=== PATIENT | male | born 1960 | race Caucasian/White ===

== ENCOUNTER → 2016-06-14 | Outpatient (CLI) | payer OTHER ==
[2016-06-14 16:09] LABS: Appearance,Urine Clear (Clear); Bilirubin,Urine Negative (Negative); Glucose,Urine (UA) Negative (Negative); Ketones,Urine 2+ (Negative); Leukocyte Esterase,Urine Negative (Negative); Nitrite,Urine Negative (Negative); PH, Urine 5.5 (5.0-8.0); Protein,Urine Trace (Negative); UA Billing (MACRO vs. MICRO) CHEM; Urobilinogen,Urine <2.0 mg/dL (<2.0)
--- NOTE | 2016-06-14 16:30 | XR ---
EXAMINATION TYPE: XR chest 2V DATE OF EXAM: 06/14/2016 4:03 PM COMPARISON: 04/08/2015 HISTORY: 56-year-old male hypertensive heart disease without heart failure TECHNIQUE: Frontal and lateral views FINDINGS: The cardiomediastinal silhouette, aorta, and pulmonary vasculature are within normal limits. Lungs an d pleural spaces are clear. Bridging anterior endplate spondylosis. IMPRESSION: 1. No acute cardiopulmonary process. 2. DISH.
[2016-06-14 16:43] LABS: CH 33.8; CHCM 34.9; HCT 43.1 % (39.0-53.0); HDW 2.34; MCH 33.9 pg (25.0-35.0); MCHC 34.9 g/dL (31.0-37.0); MCV 97.3 fL (80.0-100.0); Mean Platelet Volume 6.5; RBC 4.43 m/uL (4.30-5.90); RDW 12.7 % (11.5-15.5); WBC 7.2 k/uL (3.8-10.6)
[2016-06-14 16:51] LABS: ALT 35 U/L (21-72); AST 47 U/L (17-59); Alkaline Phosphatase 70 U/L (38-126); Anion Gap 11 mmol/L; Blood Urea Nitrogen 14 mg/dL (9-20); Calcium 10.1 mg/dL (8.4-10.2); Carbon Dioxide 28 mmol/L (22-30); Chloride 101 mmol/L (98-107); Cholesterol 234 mg/dL (<200); Glucose 86 mg/dL (74-99); Non-African American GFR(MDRD) >60 (>60 ml/min/1.73 sqM); Potassium 4.9 mmol/L (3.5-5.1); Sodium 140 mmol/L (137-145); Total Bilirubin 1.2 mg/dL (0.2-1.3); Total Protein 7.6 g/dL (6.3-8.2); Triglycerides 76 mg/dL (<150)
[2016-06-14 16:58] LABS: HDL Cholesterol 130 mg/dL (40-60)
[2016-06-14 17:21] LABS: Prostate Specific Antigen 0.55 ng/mL (0.00-4.00)
== END | disposition home or self-care (01) ==
LOC: LABWHC1 15:44
PROVIDERS: ATTEND Internal Medicine
DX: R05 Cough (principal); E78.2 Mixed hyperlipidemia; I11.9 Hypertensive heart disease without heart failure; N40.0 Benign prostatic hyperplasia without lower urinary tract symptoms; R35.0 Frequency of micturition; Z00.00 Encounter for general adult medical examination without abnormal findings
CPT/HCPCS: 36415; 71020; 80053; 80061; 81003; 84153; 84439; 84443; 85027

== ENCOUNTER 2016-09-29 20:26 | Emergency (ER) | payer OTHER ==
[2016-09-29 20:35] VITALS: RESP 18
[2016-09-29] MEDS ORDERED: ONDANSETRON 4 MG/2 ML VIAL IVP STA (22:44)
[2016-09-29] MEDS ORDERED: SODIUM CHLORIDE 0.9% 1,000 ML IV STA (22:44)
[2016-09-29] MEDS ORDERED: MORPHINE SULFATE 4 MG/ML SYRINGE IV STA (22:44)
[2016-09-29 23:27] LABS: Appearance,Urine Clear (Clear); Basophils # (A) 0.1 k/uL (0-0.2); Basophils % (A) 1 %; Bilirubin,Urine Negative (Negative); CH 34.8; CHCM 34.6; Eosinophils # (A) 0.2 k/uL (0-0.7); Eosinophils % (A) 2 %; Glucose,Urine (UA) Negative (Negative); HCT 38.3 % (39.0-53.0); HDW 2.21; HGB 12.8 gm/dL (13.0-17.5); Ketones,Urine Negative (Negative); Leukocyte Esterase,Urine Negative (Negative); Luc # (Auto) 0.21; Luc % (Auto) 2; Lymphocytes # (A) 2.3 k/uL (1.0-4.8); Lymphocytes % (A) 23 %; MCH 33.7 pg (25.0-35.0); MCHC 33.4 g/dL (31.0-37.0); MCV 101.1 fL (80.0-100.0); Mean Platelet Volume 7.2; Monocytes # (A) 0.6 k/uL (0-1.0); Monocytes % (A) 6 %; Neutrophils # (A) 6.8 k/uL (1.3-7.7); Neutrophils % (A) 67 %; Nitrite,Urine Negative (Negative); PH, Urine 5.5 (5.0-8.0); Protein,Urine Negative (Negative); RBC 3.79 m/uL (4.30-5.90); Specific Gravity,Urine 1.002 (1.001-1.035); UA Billing (MACRO vs. MICRO) CHEM; Urobilinogen,Urine <2.0 mg/dL (<2.0); WBC 10.3 k/uL (3.8-10.6)
--- NOTE | 2016-09-29 23:30 | ED ---
Abdominal Pain HPI - General Chief Complaint: Abdominal Pain Stated Complaint: Abd Pain Time Seen by Provider: 09/29/16 22:33 Source: patient, RN notes reviewed, old records reviewed Mode of arrival: ambulatory Limitations: no limitations - History of Present Illness Initial Comments: Patient is a 56-year-old male presents the chief complaint of lower abdominal pain for the past few hours. She reports it's below his belt line. He denies any hematuria or urinary symptoms. He reports he's had no fever or chills. Normal bowel movements no vomiting. He states that he's had colonoscopies in the past about the benign besides a few polyps. He states that he has felt this onset of pain while he was at work today.Patient denies any recent fever, chills, shortness of breath, chest pain, back pain, nausea vomiting, numbness or tingling, dysuria or hematuria, constipation or diarrhea, headaches or visual changes, or any other current symptoms - Related Data Home Medications Medication Instructions Recorded Confirmed Losartan/Hydrochlorothiazide 1 tab PO DAILY 05/09/14 09/29/16 [Losartan-Hctz 100-12.5 mg Tab] Cholecalciferol [Vitamin D3] 1,000 unit PO DAILY 12/21/14 09/29/16 Aspirin EC [Ecotrin Low Dose] 81 mg PO DAILY 09/29/16 09/29/16 Previous Rx's Medication Instructions Recorded Acetaminophen-Codeine 300-30mg 1 tab PO Q4H PRN #15 tablet 09/30/16 [Tylenol #3] Ciprofloxacin HCl [Cipro] 500 mg PO Q12HR 10 Days 09/30/16 metroNIDAZOLE [Flagyl] 500 mg PO TID 10 Days 09/30/16 Allergies Allergy/AdvReac Type Severity Reaction Status Date / Time No Known Allergies Allergy Verified 09/29/16 22:19 Review of Systems ROS Statement: Those systems with pertinent positive or pertinent negative responses have been documented in the HPI. ROS Other: All systems not noted in ROS Statement are negative. Past Medical History Past Medical History: Hypertension History of Any Multi-Drug Resistant Organisms: None Reported Additional Past Surgical History / Comment(s): COLONOSCOPY Past Anesthesia/Blood Transfusion Reactions: No Reported Reaction Past Psychological History: No Psychological Hx Reported Smoking Status: Current every day smoker Past Alcohol Use History: Daily, Heavy Past Drug Use History: None Reported General Exam - General Exam Comments Initial Comments: Well appearing 56 year old male, no distress. Limitations: no limitations General appearance: alert, in no apparent distress Head exam: Present: atraumatic, normocephalic, normal inspection Eye exam: Present: normal appearance, PERRL, EOMI. Absent: scleral icterus, conjunctival injection, periorbital swelling ENT exam: Present: normal exam, mucous membranes moist Neck exam: Present: normal inspection. Absent: tenderness, meningismus, lymphadenopathy Respiratory exam: Present: normal lung sounds bilaterally. Absent: respiratory distress, wheezes, rales, rhonchi, stridor Cardiovascular Exam: Present: regular rate, normal rhythm, normal heart sounds. Absent: systolic murmur, diastolic murmur, rubs, gallop, clicks GI/Abdominal exam: Present: soft, tenderness (LLQ tenderness. ), normal bowel sounds. Absent: distended, guarding, rebound, rigid Extremities exam: Present: normal inspection, full ROM, normal capillary refill. Absent: tenderness, pedal edema, joint swelling, calf tenderness Back exam: Present: normal inspection Neurological exam: Present: alert, oriented X3, CN II-XII intact Psychiatric exam: Present: normal affect, normal mood Skin exam: Present: warm, dry, intact, normal color. Absent: rash Course Vital Signs 09/29/16 09/30/16 09/30/16 20:33 00:45 02:42 Temperature 98.4 F 97.9 F Pulse Rate 98 79 85 Respiratory 18 18 18 Rate Blood Pressure 148/80 131/78 125/79 O2 Sat by Pulse 98 99 98 Oximetry Medical Decision Making - Medical Decision Making Patient is a 56-year-old male presents the chief complaint of lower abdominal pain for the past few hours. She reports it's below his belt line. He denies any hematuria or urinary symptoms. He reports he's had no fever or chills. Normal bowel movements no vomiting. He states that he's had colonoscopies in the past about the benign besides a few polyps. He states that he has felt this onset of pain while he was at work today. Patient given iv morphine and fluids. Labs show normal range WBC, evidence of macrocytosis related to patient alcohol use. Patient continues to be tender in LLQ, CT abdomen and pelvis preformed with contrast. CT shows inflammation and thickening of distal descending proximal sigmoid colon. Likely related to diverticulitis, differential includes colitis. Underlying lesion difficult to exclude, Sigmoid diverticulosis, Atheroslcerosis of abdominal aorta, and Osseous mineralization appear decreased, low attenuationin t12 vertebral body. Nonspecific. Patient informed of results. Patient will be started on ciprofloxacin and flagyl. Discussed importance remaining ETOH free while on antibioitcs and for his health. Patient advised follow up with PCP in 2-3 days. REturn parameters discussed. - Lab Data Result diagrams: 09/29/16 23:20 09/29/16 23:20 Lab Results 09/29/16 09/29/16 09/29/16 Range/Units 23:20 23:20 23:20 WBC 10.3 (3.8-10.6) k/uL RBC 3.79 L (4.30-5.90) m/uL Hgb 12.8 L (13.0-17.5) gm/dL Hct 38.3 L (39.0-53.0) % MCV 101.1 H (80.0-100.0) fL MCH 33.7 (25.0-35.0) pg MCHC 33.4 (31.0-37.0) g/dL RDW 13.0 (11.5-15.5) % Plt Count 290 (150-450) k/uL Neutrophils % 67 % Lymphocytes % 23 % Monocytes % 6 % Eosinophils % 2 % Basophils % 1 % Neutrophils # 6.8 (1.3-7.7) k/uL Lymphocytes # 2.3 (1.0-4.8) k/uL Monocytes # 0.6 (0-1.0) k/uL Eosinophils # 0.2 (0-0.7) k/uL Basophils # 0.1 (0-0.2) k/uL Sodium 140 (137-145) mmol/L Potassium 3.8 (3.5-5.1) mmol/L Chloride 107 (98-107) mmol/L Carbon Dioxide 24 (22-30) mmol/L Anion Gap 9 mmol/L BUN 14 (9-20) mg/dL Creatinine 0.63 L (0.66-1.25) mg/dL Est GFR (MDRD) Af Amer >60 (>60 ml/min/1.73 sqM) Est GFR (MDRD) Non-Af >60 (>60 ml/min/1.73 sqM) Glucose 82 (74-99) mg/dL Calcium 8.9 (8.4-10.2) mg/dL Total Bilirubin 0.3 (0.2-1.3) mg/dL AST 19 (17-59) U/L ALT 26 (21-72) U/L Alkaline Phosphatase 53 (38-126) U/L Total Protein 6.3 (6.3-8.2) g/dL Albumin 3.8 (3.5-5.0) g/dL Amylase 91 (30-110) U/L Lipase 283 (23-300) U/L Urine Color Colorless Urine Appearance Clear (Clear) Urine pH 5.5 (5.0-8.0) Ur Specific [place] 1.002 (1.001-1.035) Urine Protein Negative (Negative) Urine Glucose (UA) Negative (Negative) Urine Ketones Negative (Negative) Urine Blood Negative (Negative) Urine Nitrite Negative (Negative) Urine Bilirubin Negative (Negative) Urine Urobilinogen <2.0 (<2.0) mg/dL Ur Leukocyte Esterase Negative (Negative) - Radiology Data Radiology results: report reviewed inflammation and thickening of distal descending proximal sigmoid colon. Likely related to diverticulitis, differential includes colitis. Underlying lesion difficult to exclude. Sigmoid diverticulosis. Atheroslcerosis of abdominal aorta. Osseous mineralization appear decreased, low attenuationin t12 vertebral body. Nonspecific. Disposition Clinical Impression: Diverticulitis Disposition: HOME SELF-CARE Condition: Good Instructions: Diverticulitis (ED), Diverticulitis Diet (ED) Additional Instructions: Patient advised to follow-up with primary care physician. Take antibiotics as prescribed. He cannot drink alcohol while taking these antibiotics. Return to the emergency department if any alarming signs or symptoms occur. Prescriptions: Acetaminophen-Codeine 300-30mg [Tylenol #3] 1 tab PO Q4H PRN #15 tablet PRN Reason: Pain Ciprofloxacin HCl [Cipro] 500 mg PO Q12HR 10 Days metroNIDAZOLE [Flagyl] 500 mg PO TID 10 Days Referrals: Rogelio Fox MD [Primary Care Provider] - 1-2 days Time of Disposition: 02:14
[2016-09-29 23:37] LABS: ALT 26 U/L (21-72); AST 19 U/L (17-59); Alkaline Phosphatase 53 U/L (38-126); Amylase 91 U/L (30-110); Anion Gap 9 mmol/L; Blood Urea Nitrogen 14 mg/dL (9-20); Calcium 8.9 mg/dL (8.4-10.2); Carbon Dioxide 24 mmol/L (22-30); Chloride 107 mmol/L (98-107); Glucose 82 mg/dL (74-99); Non-African American GFR(MDRD) >60 (>60 ml/min/1.73 sqM); Potassium 3.8 mmol/L (3.5-5.1); Sodium 140 mmol/L (137-145); Total Bilirubin 0.3 mg/dL (0.2-1.3); Total Protein 6.3 g/dL (6.3-8.2)
[2016-09-30] MEDS ORDERED: RX INFO: IV CONTRAST WAS GIVEN 1 EACH MISC MISCELLANE PRN (00:12)
--- NOTE | 2016-09-30 00:43 | XR ---
XR KUB INDICATION: abdominal pain COMPARISON: None FINDINGS: Two upright frontal views of the abdomen are obtained. Nonobstructive bowel gas pattern. Linear density in the left pelvis. Overlying soft tissue structures obscure osseous findings. No definite acute osseous findings are identified. 7 mm nodularity in the left lower lung field. IMPRESSION: 1. Nonobstructive bowel gas pattern. 2. Linear density in the left pelvis may represent a nonspecific calcification. CT of the abdomen/pelvis may be considered if further evaluation is clinically warranted. 3. 7 mm nodularity in the left lower lung field. A dedicated chest radiograph may be helpful for further evaluation.
--- NOTE | 2016-09-30 02:09 | CT ---
CT abdomen and pelvis with contrast INDICATION: LLQ pain TECHNIQUE: Multiple, contiguous axial cuts of the abdomen and pelvis are obtained from the lung bases to the ischial tuberosities following the administration of IV contrast. Radiation Dose: CTDIvol: 8.1 mGy DLP: 386.2 mGy-cm CTDIvol: 9.5 mGy DLP: 239.1 mGy-cm This CT exam was performed using one or more of the following dose reduction techniques: automated exposure control, adjustment of the mA and/or kV according to patient size, and/or use of iterative reconstruction technique. COMPARISON: none FINDINGS: Atelectasis at the lung bases. Motion at lung bases limits evaluation. The liver appears prominent. The spleen is normal in size. The gallbladder, bile ducts and pancreas are grossly unremarkable. The adrenal gland are unremarkable. No evidence for hydronephrosis bilaterally. The bladder is unremarkable for the degree of distension. The appendix appears unremarkable. There is thickening of the distal descending/proximal sigmoid colon with surrounding inflammatory changes. There are scattered sigmoid diverticulosis. Fat containing bilateral inguinal hernias. There is a possible retroaortic left renal vein. Additional left renal vein drains into the left iliac vein. Atherosclerotic calcifications of the abdominal aorta. There is prominent mural plaque at the distal abdominal aorta with mild narrowing of the lumen. Osseous mineralization appears decreased. Bilateral L5 pars defects. Grade 1 anterolisthesis of L5/S1. Degenerative changes of the lower thoracic and lumbar spine. There is a low attenuation focus in the T12 vertebral body, nonspecific. Bridging osteophytes along the right aspect of the lower thoracic spine which may be related to diffuse idiopathic skeletal hyperostosis. IMPRESSION: 1. Inflammation and thickening of the distal descending/proximal sigmoid colon is likely related to diverticulitis with other differential considerations including a colitis. Underlying lesion is difficult to exclude. 2. Sigmoid diverticulosis. 3. The liver appears prominent. 4. Atherosclerosis of the abdominal aorta. 5. Osseous mineralization appears decreased. There is a low attenuation focus in the T12 vertebral body, nonspecific.
[2016-09-30] MEDS ORDERED: LEVOFLOXACIN 500 MG TAB PO STA (02:24)
[2016-09-30] MEDS ORDERED: metroNIDAZOLE 500 MG TAB PO ONE (02:24)
[2016-09-30 02:44] VITALS: BP 125/79; PULSE 85; TEMP 97.9
== END 2016-09-30 02:44 | disposition home or self-care (01) ==
LOC: EC 20:26
DX: K57.30 Diverticulosis of large intestine without perforation or abscess without bleeding (principal); D75.89 Other specified diseases of blood and blood-forming organs; I70.0 Atherosclerosis of aorta; R93.7 Abnormal findings on diagnostic imaging of other parts of musculoskeletal system; I10 Essential (primary) hypertension; F17.200 Nicotine dependence, unspecified, uncomplicated; Z79.82 Long term (current) use of aspirin; Z79.899 Other long term (current) drug therapy
CPT/HCPCS: 99285; 96374; 96375; 96361 ×3; 36415; 80053; 82150; 83690; 85025; 81003; 74000; 74177; J2270; J2405; Q9967

== ENCOUNTER → 2016-10-13 | Outpatient (CLI) | payer OTHER ==
--- NOTE | 2016-10-14 07:55 | CT ---
EXAMINATION TYPE: CT chest w con DATE OF EXAM: 10/13/2016 COMPARISON: Abdomen 09/29/2016 HISTORY: Patient has no complaints at time of study. Follow up study for new found lung nodule on re cent KUB CT DLP: 287.5 mGycm, Automated exposure control for dose reduction was used. CONTRAST: Performed injected with 100 mL of Omnipaque 300. TECHNIQUE: Axial images were obtained at 5 mm thick sections. Reconstructed images are reviewed on Pongr computer in the coronal plane. FINDINGS: Portion of the thyroid visualized is normal. No suspicious lung nodules or focal infiltrates are present. No enlarged mediastinal or hilar adenopathy is evident. The ascending aorta diameter at the level o f the main pulmonary artery is 3.6 cm. The main pulmonary artery diameter at the bifurcation is 2.[address] sections are obtained through the upper abdomen. Abdomen is essentially unremarkable. This exam is compared with the x-ray of 09/29/2016. The 7 mm density overlying the left heart on these images is not identified on the CT chest images. IMPRESSIONS: 1. Normal Chest CT.
== END ==
LOC: RADCTMAIN 17:20
PROVIDERS: ATTEND Internal Medicine
DX: R22.2 Localized swelling, mass and lump, trunk (principal)
CPT/HCPCS: 71260; Q9967

== ENCOUNTER → 2017-08-02 | Outpatient (CLI) | payer OTHER ==
[2017-08-02 13:33] LABS: HCT 42.9 % (39.0-53.0); HGB 14.5 gm/dL (13.0-17.5); MCH 33.6 pg (25.0-35.0); MCHC 33.8 g/dL (31.0-37.0); MCV 99.7 fL (80.0-100.0); Mean Platelet Volume 5.9; Platelet Count 358 k/uL (150-450); RBC 4.31 m/uL (4.30-5.90); RDW 13.4 % (11.5-15.5); WBC 6.1 k/uL (3.8-10.6)
[2017-08-02 14:04] LABS: ALT 42 U/L (21-72); AST 45 U/L (17-59); Albumin 4.4 g/dL (3.5-5.0); Alkaline Phosphatase 71 U/L (38-126); Anion Gap 14 mmol/L; Blood Urea Nitrogen 9 mg/dL (9-20); Calcium 9.4 mg/dL (8.4-10.2); Carbon Dioxide 26 mmol/L (22-30); Chloride 105 mmol/L (98-107); Cholesterol 215 mg/dL (<200); Glucose 84 mg/dL (74-99); HDL Cholesterol 97 mg/dL (40-60); LDL Cholesterol,Calculated 93 mg/dL (0-99); Potassium 5.5 mmol/L (3.5-5.1); Sodium 145 mmol/L (137-145); Total Bilirubin 0.6 mg/dL (0.2-1.3); Total Protein 6.9 g/dL (6.3-8.2); Triglycerides 127 mg/dL (<150)
[2017-08-02 14:18] LABS: T4, Free (Free Thyroxine) 0.91 ng/dL (0.78-2.19)
[2017-08-02 14:32] LABS: Prostate Specific Antigen 0.98 ng/mL (0.00-4.00)
--- NOTE | 2017-08-02 16:17 | XR ---
EXAMINATION TYPE: XR chest 2V DATE OF EXAM: 08/02/2017 COMPARISON: Prior chest x-ray 06/14/2016 HISTORY: Physical exam TECHNIQUE: Frontal and lateral views of the chest are obtained. FINDINGS: There is no focal air space opacity, pleural effusion, or pneumothorax seen. The cardiac silhouette size is stable. The osseous structures are intact. Prominent lung volume may be indicati ve of underlying COPD. Flowing anterior osteophytes along the thoracic spine suggest diffuse idiopath ic skeletal hyperostosis. IMPRESSION: No acute cardiopulmonary process.
== END | disposition home or self-care (01) ==
LOC: LABT 12:22
PROVIDERS: ATTEND Internal Medicine
DX: Z00.00 Encounter for general adult medical examination without abnormal findings (principal); I11.9 Hypertensive heart disease without heart failure; E78.2 Mixed hyperlipidemia; K21.0 Gastro-esophageal reflux disease with esophagitis; R05 Cough; N40.0 Benign prostatic hyperplasia without lower urinary tract symptoms
CPT/HCPCS: 36415; 71046; 80053; 80061; 84153; 84439; 84443; 85027

== ENCOUNTER → 2017-11-15 | Outpatient (CLI) | payer OTHER ==
[2017-11-15 14:34] LABS: Anion Gap 11 mmol/L; Blood Urea Nitrogen 14 mg/dL (9-20); Carbon Dioxide 27 mmol/L (22-30); Chloride 103 mmol/L (98-107); Sodium 141 mmol/L (137-145)
== END | disposition home or self-care (01) ==
LOC: LABWHC1 13:49
PROVIDERS: ATTEND Internal Medicine
DX: E87.5 Hyperkalemia (principal); I11.9 Hypertensive heart disease without heart failure
CPT/HCPCS: 36415; 80051; 82565; 84520

== ENCOUNTER → 2017-12-24 | Outpatient (CLI) | payer OTHER ==
[2017-12-24 22:48] LABS: ALT 32 U/L (10-49); AST 38 U/L (14-35); Cholesterol 166 mg/dL (0-200); Creatine Kinase 80 U/L (35-257); Triglycerides <50.0 mg/dL (0.0-149.0); VLDL Calculation 9.98 mg/dL (5.00-40.00)
== END | disposition home or self-care (01) ==
LOC: LABWHC1 11:51
PROVIDERS: ATTEND Internal Medicine
DX: E78.2 Mixed hyperlipidemia (principal)
CPT/HCPCS: 36415; 80061; 82550; 84450; 84460

== ENCOUNTER 2018-03-22 04:29 | Emergency (ER) | payer OTHER ==
[2018-03-22 04:35] VITALS: TEMP 97.6
[2018-03-22 05:26] LABS: Basophils % (A) 1 %; Eosinophils # (A) 0.1 k/uL (0-0.7); Eosinophils % (A) 2 %; HCT 42.5 % (39.0-53.0); HGB 14.4 gm/dL (13.0-17.5); Lymphocytes # (A) 2.4 k/uL (1.0-4.8); Lymphocytes % (A) 35 %; MCH 33.4 pg (25.0-35.0); MCHC 33.8 g/dL (31.0-37.0); MCV 98.8 fL (80.0-100.0); Mean Platelet Volume 6.4; Monocytes # (A) 0.6 k/uL (0-1.0); Monocytes % (A) 8 %; Neutrophils # (A) 3.5 k/uL (1.3-7.7); Neutrophils % (A) 51 %; Platelet Count 309 k/uL (150-450); RBC 4.31 m/uL (4.30-5.90); RDW 12.5 % (11.5-15.5); WBC 6.8 k/uL (3.8-10.6)
[2018-03-22 05:33] LABS: INR 0.9 (<1.2); Prothrombin Time 9.6 sec (9.0-12.0)
[2018-03-22 05:40] LABS: ALT 34 U/L (21-72); AST 37 U/L (17-59); Albumin 4.2 g/dL (3.5-5.0); Alkaline Phosphatase 57 U/L (38-126); Anion Gap 8 mmol/L; Blood Urea Nitrogen 18 mg/dL (9-20); Calcium 9.4 mg/dL (8.4-10.2); Carbon Dioxide 23 mmol/L (22-30); Chloride 106 mmol/L (98-107); Glucose 95 mg/dL (74-99); Potassium 3.7 mmol/L (3.5-5.1); Sodium 137 mmol/L (137-145); Total Bilirubin 0.4 mg/dL (0.2-1.3); Total Protein 6.8 g/dL (6.3-8.2)
--- NOTE | 2018-03-22 05:49 | XR ---
EXAM: XR Chest, 2 Views CLINICAL HISTORY: Reason: dizziness TECHNIQUE: Frontal and lateral views of the chest. COMPARISON: Chest x-ray 08/02/2017 FINDINGS: Lungs: Lungs are clear of focal infiltrates or consolidations. Pleural space: No evidence of pleural effusion or pneumothorax. Heart: Heart size is within normal limits. Mediastinum: Mediastinal structures are unremarkable. Bones/joints: Thoracic spine hypertrophic changes suggesting diffuse idiopathic skeletal hyperostosis IMPRESSION: No evidence of acute cardiopulmonary disease.
[2018-03-22] MEDS: SODIUM CHLORIDE 0.9% 1,000 ML IV ONE (07:00)
--- NOTE | 2018-03-22 07:56 | ED ---
Dizziness HPI - General Chief Complaint: Dizziness Stated Complaint: Light-headed Time Seen by Provider: 03/22/18 05:07 Source: patient Mode of arrival: wheelchair Limitations: no limitations - History of Present Illness Initial Comments: Patient's 58-year-old man who presents to be evaluated for what he is terming as episodes where his head does not feel right. He at one point described it as dizziness, at one point described as a spasm. He states that it is not pain. Seems to be brought on by turning or moving. This better if he remains still or closes his eyes. Patient denies any head injury. He is denying neurologic symptoms. MD Complaint: dizziness - Related Data Home Medications Medication Instructions Recorded Confirmed Losartan/Hydrochlorothiazide 1 tab PO DAILY 05/09/14 09/29/16 [Losartan-Hctz 100-12.5 mg Tab] Cholecalciferol [Vitamin D3] 1,000 unit PO DAILY 12/21/14 09/29/16 Aspirin EC [Ecotrin Low Dose] 81 mg PO DAILY 09/29/16 09/29/16 Previous Rx's Medication Instructions Recorded Acetaminophen-Codeine 300-30mg 1 tab PO Q4H PRN #15 tablet 09/30/16 [Tylenol #3] Ciprofloxacin HCl [Cipro] 500 mg PO Q12HR 10 Days 09/30/16 metroNIDAZOLE [Flagyl] 500 mg PO TID 10 Days 09/30/16 Meclizine [Antivert] 25 mg PO TID PRN #15 tab 03/22/18 Allergies Allergy/AdvReac Type Severity Reaction Status Date / Time No Known Allergies Allergy Verified 03/22/18 04:35 Review of Systems ROS Statement: Those systems with pertinent positive or pertinent negative responses have been documented in the HPI. ROS Other: All systems not noted in ROS Statement are negative. Constitutional: Denies: fever, chills, weakness Eyes: Denies: eye pain, vision change ENT: Denies: ear pain, hearing loss Respiratory: Denies: cough, dyspnea Cardiovascular: Denies: chest pain, palpitations, syncope Gastrointestinal: Reports: nausea. Denies: abdominal pain, vomiting, diarrhea Genitourinary: Denies: dysuria, hematuria Musculoskeletal: Denies: back pain Skin: Denies: rash Neurological: Reports: as per HPI, vertigo. Denies: headache, weakness, numbness, paresthesias Past Medical History Past Medical History: Hypertension History of Any Multi-Drug Resistant Organisms: None Reported Additional Past Surgical History / Comment(s): COLONOSCOPY Past Anesthesia/Blood Transfusion Reactions: No Reported Reaction Past Psychological History: No Psychological Hx Reported Smoking Status: Current every day smoker Past Alcohol Use History: Daily, Heavy Past Drug Use History: None Reported General Exam Limitations: no limitations General appearance: alert, in no apparent distress Head exam: Present: atraumatic, normocephalic, normal inspection Eye exam: Present: normal appearance, PERRL, EOMI, nystagmus. Absent: scleral icterus, conjunctival injection ENT exam: Present: normal oropharynx Neck exam: Present: normal inspection, full ROM. Absent: tenderness, meningismus Respiratory exam: Present: normal lung sounds bilaterally. Absent: respiratory distress, wheezes, rales, rhonchi, stridor Cardiovascular Exam: Present: regular rate, normal rhythm, normal heart sounds. Absent: systolic murmur, diastolic murmur, rubs, gallop GI/Abdominal exam: Present: soft. Absent: tenderness, guarding, rebound Extremities exam: Present: normal inspection, normal capillary refill. Absent: pedal edema, calf tenderness Back exam: Present: normal inspection Neurological exam: Present: alert, oriented X3, CN II-XII intact. Absent: motor sensory deficit Skin exam: Present: warm, dry, intact, normal color. Absent: rash Course Vital Signs 03/22/18 03/22/18 03/22/18 04:31 06:11 06:14 Temperature 97.6 F Pulse Rate 81 Pulse Rate [ 65 76 Pulse Oximetery ] Respiratory 19 20 20 Rate Blood Pressure 164/103 Blood Pressure 124/85 131/91 [Left Arm] O2 Sat by Pulse 99 Oximetry 03/22/18 03/22/18 06:15 08:14 Temperature Pulse Rate 88 Pulse Rate [ 82 Pulse Oximetery ] Respiratory 20 18 Rate Blood Pressure 153/90 Blood Pressure 131/91 [Left Arm] O2 Sat by Pulse 99 Oximetry Medical Decision Making - Lab Data Result diagrams: 03/22/18 04:51 03/22/18 04:51 Lab Results 03/22/18 03/22/18 03/22/18 Range/Units 04:51 04:51 04:51 WBC 6.8 (3.8-10.6) k/uL RBC 4.31 (4.30-5.90) m/uL Hgb 14.4 (13.0-17.5) gm/dL Hct 42.5 (39.0-53.0) % MCV 98.8 (80.0-100.0) fL MCH 33.4 (25.0-35.0) pg MCHC 33.8 (31.0-37.0) g/dL RDW 12.5 (11.5-15.5) % Plt Count 309 (150-450) k/uL Neutrophils % 51 % Lymphocytes % 35 % Monocytes % 8 % Eosinophils % 2 % Basophils % 1 % Neutrophils # 3.5 (1.3-7.7) k/uL Lymphocytes # 2.4 (1.0-4.8) k/uL Monocytes # 0.6 (0-1.0) k/uL Eosinophils # 0.1 (0-0.7) k/uL Basophils # 0.0 (0-0.2) k/uL PT 9.6 (9.0-12.0) sec INR 0.9 (<1.2) Sodium 137 (137-145) mmol/L Potassium 3.7 (3.5-5.1) mmol/L Chloride 106 (98-107) mmol/L Carbon Dioxide 23 (22-30) mmol/L Anion Gap 8 mmol/L BUN 18 (9-20) mg/dL Creatinine 0.76 (0.66-1.25) mg/dL Est GFR (CKD-EPI)AfAm >90 (>60 ml/min/1.73 sqM) Est GFR (CKD-EPI)NonAf >90 (>60 ml/min/1.73 sqM) Glucose 95 (74-99) mg/dL Calcium 9.4 (8.4-10.2) mg/dL Total Bilirubin 0.4 (0.2-1.3) mg/dL AST 37 (17-59) U/L ALT 34 (21-72) U/L Alkaline Phosphatase 57 (38-126) U/L Troponin I (0.000-0.034) ng/mL Total Protein 6.8 (6.3-8.2) g/dL Albumin 4.2 (3.5-5.0) g/dL 03/22/18 Range/Units 04:51 WBC (3.8-10.6) k/uL RBC (4.30-5.90) m/uL Hgb (13.0-17.5) gm/dL Hct (39.0-53.0) % MCV (80.0-100.0) fL MCH (25.0-35.0) pg MCHC (31.0-37.0) g/dL RDW (11.5-15.5) % Plt Count (150-450) k/uL Neutrophils % % Lymphocytes % % Monocytes % % Eosinophils % % Basophils % % Neutrophils # (1.3-7.7) k/uL Lymphocytes # (1.0-4.8) k/uL Monocytes # (0-1.0) k/uL Eosinophils # (0-0.7) k/uL Basophils # (0-0.2) k/uL PT (9.0-12.0) sec INR (<1.2) Sodium (137-145) mmol/L Potassium (3.5-5.1) mmol/L Chloride (98-107) mmol/L Carbon Dioxide (22-30) mmol/L Anion Gap mmol/L BUN (9-20) mg/dL Creatinine (0.66-1.25) mg/dL Est GFR (CKD-EPI)AfAm (>60 ml/min/1.73 sqM) Est GFR (CKD-EPI)NonAf (>60 ml/min/1.73 sqM) Glucose (74-99) mg/dL Calcium (8.4-10.2) mg/dL Total Bilirubin (0.2-1.3) mg/dL AST (17-59) U/L ALT (21-72) U/L Alkaline Phosphatase (38-126) U/L Troponin I <0.012 (0.000-0.034) ng/mL Total Protein (6.3-8.2) g/dL Albumin (3.5-5.0) g/dL Disposition Clinical Impression: Vertigo Disposition: HOME SELF-CARE Condition: Good Instructions (If sedation given, give patient instructions): Vertigo (ED) Prescriptions: Meclizine [Antivert] 25 mg PO TID PRN #15 tab PRN Reason: Vertigo Is patient prescribed a controlled substance at d/c from ED?: No Referrals: Rogelio Fox MD [Primary Care Provider] - 1-2 days Ilana Ramos MD [STAFF PHYSICIAN] - 1-2 days
[2018-03-22 08:15] VITALS: BP 153/90; PULSE 88; RESP 18
== END 2018-03-22 08:45 | disposition home or self-care (01) ==
LOC: EC 04:29
DX: R42 Dizziness and giddiness (principal); I10 Essential (primary) hypertension; F17.200 Nicotine dependence, unspecified, uncomplicated; Z79.899 Other long term (current) drug therapy; Z79.82 Long term (current) use of aspirin
CPT/HCPCS: 36415; 71046; 80053; 84484; 85025; 85610; 93005; 96360; 99284

== ENCOUNTER → 2019-12-17 | Outpatient (CLI) | payer OTHER ==
[2019-12-17 20:07] LABS: African American GFR (CKD) >90 (>60 ml/min/1.73 sqM); Blood Urea Nitrogen 17 mg/dL (9-20); Non-African American GFR(CKD) >90 (>60 ml/min/1.73 sqM)
--- NOTE | 2019-12-18 08:26 | CT ---
EXAMINATION TYPE: CT abdomen pelvis w con DATE OF EXAM: 12/17/2019 COMPARISON: 09/30/2016 INDICATION: Abdominal bloating, flatulence DLP: 703.50 mGycm, Automated exposure control for dose reduction was used. CONTRAST: 100 mL of Isovue 300. Study performed with Oral Contrast TECHNIQUE: Axial images were obtained from above the diaphragm to the pubic rami in the axial plane a t 5 mm thick sections. Reconstructed images are reviewed on the computer in the coronal plane. FINDINGS: Limited CT sections are obtained the lung bases. The lung bases are clear. CT ABDOMEN: Liver: Normal Spleen: Normal Pancreas: Normal Adrenal glands: The adrenal glands are normal. Gallbladder: Normal Kidneys: No masses are evident. No hydronephrosis is present. No cysts are present. Delayed images were obtained through the kidneys, which remain unremarkable. Aorta: Vascular calcification is within the aorta. Inferior vena cava: Normal. CT PELVIS: Loops of bowel within the abdomen and pelvis are normal. There are a few diverticuli within the sigm oid colon. No suspicious dilated loops of bowel are evident. No evidence of obstructions are evident. Colon is visualized unremarkable There are loops of bowel which are incompletely distended or lack oral contrast limiting their evaluation. Appendix: Normal as visualized. Urinary bladder: Normal. Genitourinary structures: Prostate is slightly prominent contains calcification. Osseous structures: No suspicious lytic or sclerotic lesions. IMPRESSIONS: 1. Mild diverticulosis without acute diverticulitis.
== END | disposition home or self-care (01) ==
LOC: RADCTMAIN 17:44
PROVIDERS: ATTEND Family Medicine
DX: K57.90 Diverticulosis of intestine, part unspecified, without perforation or abscess without bleeding (principal); R14.3 Flatulence
CPT/HCPCS: 82565; 84520; 74177; 36415; Q9967

== ENCOUNTER → 2021-11-17 | Outpatient (CLI) | payer OTHER ==
--- NOTE | 2021-11-18 09:32 | CTL ---
EXAMINATION TYPE: CT Low Dose Lung DATE OF EXAM ORDERED: 11/17/2021 HISTORY: History of smoking. Lung cancer screening CT DLP: [address] CTDI: 1.99 mGy Automated exposure control for dose reduction was used. SCREENING VISIT: Initial screening COMPARISON: 10/13/2016 TECHNIQUE: Low dose computed tomography scan was performed through the chest at 1 mm thick sections a nd reconstructed images in multiple planes at 1 mm and [address] DIAGNOSTIC QUALITY: Satisfactory FINDINGS: LUNG NODULES: None. LUNGS: COPD: Severity: Mild Fibrosis: Severity: None Lymph nodes: None Other findings: None RIGHT PLEURAL SPACE: Effusion: None Calcification: None Thickening: None Pneumothorax: None LEFT PLEURAL SPACE: Effusion: None Calcification: None Thickening: None Pneumothorax: None HEART: Heart Size: Normal Coronary Calcification: Mild to moderate coronary artery atherosclerosis Pericardial Effusion: None OTHER FINDINGS: Upper abdomen: None Bony thorax: Multilevel disc degeneration changes throughout the spine. Supraclavicular region: None Other: None IMPRESSION: 1. No pulmonary nodules. 2. Mild emphysema. 3. Mild/moderate coronary artery atherosclerosis. CT LUNG RAD AND CT CHEST RECOMMENDATION: Lung-Rad 1 Negative: Continue annual screening with LDCT in 12 months. S Modifier (other clinically significant findings): None
== END | disposition home or self-care (01) ==
LOC: RADCTMAIN 18:13
PROVIDERS: ATTEND Family Medicine
DX: Z12.2 Encounter for screening for malignant neoplasm of respiratory organs (principal); Z87.891 Personal history of nicotine dependence
CPT/HCPCS: 71271

== ENCOUNTER → 2022-01-20 | Outpatient (CLI) | payer OTHER ==
[2022-01-20 14:51] LABS: ALT 32 U/L (10-49); AST 35 U/L (14-35); African American GFR (CKD) 116.1 (60.0-200.0); Albumin 4.3 g/dL (3.8-4.9); Albumin/Globulin Ratio 1.67 (1.60-3.17); Alkaline Phosphatase 85 U/L (41-126); BUN/Creat Ratio 17.02 Ratio (12.00-20.00); Blood Urea Nitrogen 12.2 mg/dL (9.0-27.0); Calcium 9.3 mg/dL (8.7-10.3); Carbon Dioxide 28.8 mmol/L (20.0-27.5); Chloride 103 mmol/L (96-109); Chol/HDL Ratio 2.52 Ratio; Globulin 2.6 g/dL (1.6-3.3); Glucose 113 mg/dL (70-110); LDL Cholesterol,Calculated 107.3 mg/dL (0.0-131.0); Non-African American GFR(CKD) 100.2 (60.0-200.0); Potassium 4.4 mmol/L (3.5-5.5); Sodium 142 mmol/L (135-145); Total Protein 6.9 g/dL (6.2-8.2); VLDL Calculation 16.98 mg/dL (5.00-40.00)
== END | disposition home or self-care (01) ==
LOC: LABWHC1 08:35
PROVIDERS: ATTEND Internal Medicine Interventional Cardiology
DX: E78.2 Mixed hyperlipidemia (principal)
CPT/HCPCS: 36415; 80053; 80061

== ENCOUNTER → 2023-02-11 | Outpatient (CLI) | payer OTHER ==
--- NOTE | 2023-02-11 09:07 | US ---
EXAMINATION TYPE: US abdomen limited DATE OF EXAM: 02/11/2023 COMPARISON: CT 2022 CLINICAL INDICATION: Male, 63 years old with history of F10.20 ALCOHOL DEPENDENCE, UNCOMPLICATED; TECHNIQUE: Multiple sonographic images of the right upper quadrant are obtained. FINDINGS: EXAM MEASUREMENTS: Liver Length: 15.5 cm Gallbladder Wall: 0.2 cm CBD: 0.3 cm Right Kidney: 10.5 x 4.7 x 5.0 cm Pancreas: visualized portions wnl, limited by overlying midline bowel gas Liver: wnl Gallbladder: wnl Evidence for sonographic Martinez's sign: no CBD: wnl Right Kidney: wnl IMPRESSION: No evidence for acute process.
--- NOTE | 2023-02-11 10:35 | CTL ---
EXAMINATION: SCREENING CT SCAN OF THE CHEST WITHOUT IV CONTRAST DATE OF EXAM: 02/11/2023 9:31 AM HISTORY: High risk for lung cancer. Nicotine dependence. COMPARISON: 11/17/2021. TECHNIQUE: CT examination of the chest was performed without IV contrast. Sagittal, coronal and MIP r eformatted images were provided. Low dose technique was used. CT dose lowering techniques were used, to include: automated exposure control, adjustment for patient size, and or use of iterative reconstr uction. FINDINGS: Nodules: No significant solid pulmonary nodules are seen. Lungs: Normal. Mediastinum: Normal. Coronary artery calcification: There are moderate coronary calcifications. Aorta/Cardiac Chambers: There is moderate vascular calcification throughout the thoracic aorta withou t evidence of aneurysmal dilation. Upper Abdomen: Normal. Chest Wall: Normal. Musculoskeletal: Normal. IMPRESSION: 1. Negative lung cancer screening examination for new or significant pulmonary nodules. ACR LUNGRADS CATEGORY:LungRads 1 - NEGATIVE. No nodules or definitely benign nodules including nodules with speci fic calcifications: complete, central, popcorn, concentric rings and fat containing nodules. Recommendation: Continue annual screening with low dose CT in 12 months. Moderate coronary artery calcifications.ns.
== END | disposition home or self-care (01) ==
LOC: RADUSWWP 07:00
PROVIDERS: ATTEND Internal Medicine
DX: Z12.2 Encounter for screening for malignant neoplasm of respiratory organs (principal); F17.210 Nicotine dependence, cigarettes, uncomplicated
CPT/HCPCS: 71271; 76705

== ENCOUNTER → 2023-02-11 | Outpatient (CLI) | payer OTHER ==
[2023-02-11 15:51] LABS: Basophils # (A) 0.06 X 10*3/uL (0.00-0.10); Eosinophils % (A) 3.4 %; HCT 46.9 % (39.6-50.0); HGB 15.4 g/dL (13.0-17.0); Lymphocytes # (A) 1.39 X 10*3/uL (0.90-5.00); MCH 33.6 pg (27.0-32.0); MCHC 32.8 g/dL (32.0-37.0); MCV 102.4 FL (80.0-97.0); Mean Platelet Volume 9.3 FL (9.5-12.2); Monocytes # (A) 0.62 X 10*3/uL (0.20-1.00); Monocytes % (A) 10.7 %; NRBC Per 100 WBC 0 X 10*3/uL (0.00-0.01); Neutrophils # (A) 3.52 X 10*3/uL (1.80-7.70); Neutrophils % (A) 60.7 %; Platelet Count 358 X 10*3/uL (140-440); RBC 4.58 X 10*6/uL (4.40-5.60); RDW 12.7 % (11.5-14.5)
[2023-02-11 16:35] LABS: BUN/Creat Ratio 16.62 Ratio (12.00-20.00); Blood Urea Nitrogen 13.3 mg/dL (9.0-27.0); Glucose 105 mg/dL (70-110); Uric Acid 7.6 mg/dL (3.7-8.7)
[2023-02-11 16:36] LABS: ALT 12 U/L (10-49); AST 21 U/L (14-35); Albumin 4.3 g/dL (3.8-4.9); Albumin/Globulin Ratio 1.79 Ratio (1.60-3.17); Alkaline Phosphatase 81 U/L (41-126); Calcium 9.9 mg/dL (8.7-10.3); Carbon Dioxide 27.8 mmol/L (21.6-31.8); Chloride 106 mmol/L (96-109); Globulin 2.4 g/dL (1.6-3.3); Potassium 5.8 mmol/L (3.5-5.5); Sodium 144 mmol/L (135-145); Total Bilirubin 0.4 mg/dL (0.3-1.2); Total Protein 6.7 g/dL (6.2-8.2)
== END | disposition home or self-care (01) ==
LOC: LABWHC1 07:51
PROVIDERS: ATTEND Internal Medicine
DX: I10 Essential (primary) hypertension (principal); E78.2 Mixed hyperlipidemia; E55.9 Vitamin D deficiency, unspecified; J30.9 Allergic rhinitis, unspecified; E79.0 Hyperuricemia without signs of inflammatory arthritis and tophaceous disease
CPT/HCPCS: 36415; 80053; 82306; 83721; 84443; 84550; 85025

== ENCOUNTER → 2023-04-11 | Outpatient (CLI) | payer OTHER ==
--- NOTE | 2023-04-11 09:54 | XR ---
EXAMINATION TYPE: XR cervical spine comp DATE OF EXAM: 04/11/2023 COMPARISON: 02/05/2012 HISTORY: Pain TECHNIQUE: Four views are submitted. FINDINGS: The odontoid is intact. There are no compression deformities. The prevertebral soft tissue structur es are within normal limits. Calcifications in the soft tissue of the neck are likely related to ath erosclerotic changes of the carotid artery. Multilevel mild degenerative disc disease and spurring. M oderate facet arthropathy involving the mid and lower spine. Multilevel mild foraminal encroachment. IMPRESSION: 1. Multilevel mild degenerative disc disease with more moderate and facet arthropathy. Multilevel mil d foraminal.
== END | disposition home or self-care (01) ==
LOC: RADXRMAIN 09:32
PROVIDERS: ATTEND Family Medicine
DX: M50.30 Other cervical disc degeneration, unspecified cervical region (principal); M47.812 Spondylosis without myelopathy or radiculopathy, cervical region; R20.2 Paresthesia of skin
CPT/HCPCS: 72050

== ENCOUNTER → 2023-05-18 | Outpatient (CLI) | payer OTHER ==
--- NOTE | 2023-05-18 07:58 | US ---
EXAMINATION TYPE: US carotid duplex BILAT DATE OF EXAM: 05/18/2023 COMPARISON: NONE CLINICAL INDICATION: Male, 63 years old with history of I65.23 CAROTID ARTERY PLAQUE; Current smoker, hypertension. Plaque per order. TECHNIQUE: Carotid duplex ultrasound examination. Indirect Doppler criteria was utilized. FINDINGS: EXAM MEASUREMENTS: RIGHT: Peak Systolic Velocity (PSV) cm/sec ----- Right CCA: 79.8 ----- Right ICA: 135.0 ----- Right ECA: 77.6 ICA/CCA ratio: 1.7 RIGHT: End Diastole cm/sec ----- Right CCA: 18.2 ----- Right ICA: 35.3 ----- Right ECA: 17.1 LEFT: Peak Systolic Velocity (PSV) cm/sec ----- Left CCA: 78.7 ----- Left ICA: 112.1 ----- Left ECA: 103.0 ICA/CCA ratio: 1.4 LEFT: End Diastole cm/sec ----- Left CCA: 20.4 ----- Left ICA: 28.0 ----- Left ECA: 18.9 VERTEBRALS (direction of flow): Right Vertebral: Antegrade Left Vertebral: Antegrade Rhythm: Normal ALL TERRAIN VEHICLE TECHNICIAN NOTES: Plaque seen within bilateral carotid arteries and bulbs. Elevated velocity with in right ICA. Slightly tortuous left ICA. IMPRESSION: Bilateral atherosclerotic plaque with no definite significant hemodynamic stenosis. Criteria for Assigning % of Stenosis / Diameter reduction (Estimation based on the indirect measurements of the internal carotid artery velocities (ICA PSV). 1. Normal (no stenosis)=ICA PSV < 125 cm/s: ratio < 2.0: ICA EDV<40 cm/s. 2. Less than 50% stenosis=ICA PSV < 125 cm/s: ratio < 2.0: ICA EDV<40 cm/s. 3. 50 to 69% stenosis=ICA PSV of 125 to 230 cm/s: ration 2.0 ? 4.0: ICA EDV 40-100 cm/s. 4. Greater than 70% stenosis to near occlusion= ICA PSV > 230 cm/s: ratio > 4.0: ICA EDV > 100 cm/s. 5. Near occlusion= ICA PSV velocities may be low or undetectable: variable ratio and ICA EDV. 6. Total occlusion=unable to detect flow.
== END | disposition home or self-care (01) ==
LOC: RADMRIMAIN 06:02
PROVIDERS: ATTEND Family Medicine
DX: I25.10 Atherosclerotic heart disease of native coronary artery without angina pectoris (principal); M50.90 Cervical disc disorder, unspecified, unspecified cervical region; R20.0 Anesthesia of skin; I65.23 Occlusion and stenosis of bilateral carotid arteries
CPT/HCPCS: 72141; 93880

== ENCOUNTER → 2023-05-27 | Outpatient (CLI) | payer SELFPAY ==
[2023-05-27 16:02] LABS: Chol/HDL Ratio 2.41 Ratio; VLDL Calculation 13.74 mg/dL (5.00-40.00)
[2023-05-27 16:03] LABS: ALT 32 U/L (10-49); AST 36 U/L (14-35)
== END | disposition home or self-care (01) ==
LOC: LABWHC1 07:31
PROVIDERS: ATTEND Internal Medicine Interventional Cardiology
DX: E78.2 Mixed hyperlipidemia (principal)
CPT/HCPCS: 36415; 80061; 84450; 84460

== ENCOUNTER → 2024-03-21 | Outpatient (CLI) | payer MEDICARE ==
--- NOTE | 2024-03-21 09:56 | CTL ---
EXAMINATION TYPE: CT Low Dose Lung DATE OF EXAM ORDERED: 03/21/2024 COMPARISON: CT Low Dose Lung 02/11/2023, CLINICAL INDICATION: Male, 64 years old with history of Z12.2 ENCNTR SCREEN FOR MALIGNANT NEOPLASM OF RESP; PHH, current smoker, 1 ppd x32 years, Lung cancer screening, History of Smoking/tobacco use. TECHNIQUE: Low dose computed tomography scan was performed through the chest at 1 mm thick sections a nd reconstructed images in multiple planes at 1 mm and [address] DLP: 107.[address] CTDI: 3.0 mGy Automated exposure control for dose reduction was used. CT DIAGNOSTIC QUALITY: Satisfactory FINDINGS: Nodules: No clinically significant pulmonary nodules. LUNGS: COPD: Severity: Mild Fibrosis: Severity: None Lymph nodes: None Other findings: None RIGHT PLEURAL SPACE: Effusion: None Calcification: None Thickening: None Pneumothorax: None LEFT PLEURAL SPACE: Effusion: None Calcification: None Thickening: None Pneumothorax: None HEART: Heart Size: Normal Coronary Calcification: Moderate Pericardial Effusion: None OTHER FINDINGS: Upper abdomen: None Bony thorax: DISH of the thoracic spine. Supraclavicular region: None Other: None IMPRESSION: 1. No clinically significant pulmonary nodules. 2. Mild COPD changes. 3. Moderate coronary artery atherosclerosis. CT LUNG RAD AND CT CHEST RECOMMENDATION: Lung-Rad 1 Negative: Continue annual screening with LDCT in 12 months. S Modifier (other clinically significant findings): None [facility], , 03/21/2024 9:54 AM
== END | disposition home or self-care (01) ==
LOC: RADCTMAIN 09:01
PROVIDERS: ATTEND Family Medicine
DX: Z12.2 Encounter for screening for malignant neoplasm of respiratory organs (principal); F17.210 Nicotine dependence, cigarettes, uncomplicated; J44.9 Chronic obstructive pulmonary disease, unspecified; I25.10 Atherosclerotic heart disease of native coronary artery without angina pectoris
CPT/HCPCS: 71271

== ENCOUNTER 2024-07-03 09:25 | Day surgery (SDC) | payer MEDICARE ==
[2024-07-02 10:19] VITALS: BMI 29.3
[~2024-07-03 09:25] MED LIST: LIDOCAINE 1% (10MG/ML) FOR IV START INTRADERMA PRN
[2024-07-03 09:44] VITALS: TEMP 97
[2024-07-03] MEDS: IV FLUID CONTINUATION 1,000 ML IV ONE (09:59)
[2024-07-03] MEDS: LACTATED RINGERS 1,000 ML IV SCH (09:59)
[2024-07-03] MEDS ORDERED: LIDOCAINE 1% INJ 10MG/ML (20 ML MDV) ONE (10:59)
[2024-07-03] MEDS ORDERED: PROPOFOL 10 MG/ML 20 ML VIAL IV ONE (10:59)
[2024-07-03] MEDS ORDERED: ePHEDrine 50 MG/ML 1 ML VIAL ONE (10:59)
[2024-07-03] MEDS ORDERED: PHENYLEPHRINE-0.9% NACL SYG 1,000 MCG/10 ML SYRINGE ONE (10:59)
[2024-07-03] MEDS ORDERED: WATER FOR INJECTION, STERILE 10 ML VIAL IV ONE (10:59)
--- NOTE | 2024-07-03 11:00 | P.GSHP ---
History of Present Illness H&P Date: 07/03/24 Chief Complaint: Colon cancer screening 64-year-old male here for colonoscopy. Last colonoscopy 10 years ago. Patient with history of previous adenomatous polyps 2009. Last colonoscopy normal. No bowel complaints. No family history of colon cancer. Past Medical History Past Medical History: Hyperlipidemia, Hypertension Additional Past Medical History / Comment(s): "I have a disease in my hands that make my fingers curl." History of Any Multi-Drug Resistant Organisms: None Reported Past Surgical History: Orthopedic Surgery Additional Past Surgical History / Comment(s): COLONOSCOPY, had bilat hand surgery. Past Anesthesia/Blood Transfusion Reactions: No Reported Reaction Additional Past Anesthesia/Blood Transfusion Reaction / Comment(s): No hx of blood transfusion to date. Smoking Status: Current every day smoker - Past Family History Brother(s) Family Medical History: Coronary Artery Disease (CAD) Medications and Allergies Home Medications Medication Instructions Recorded Confirmed Type Cholecalciferol [Vitamin D3] 1 dose PO QA 12/21/14 07/03/24 History Aspirin EC [Ecotrin Low Dose] 81 mg PO QA 09/29/16 07/03/24 History Azelastine/Fluticasone 1 spray EA NOSTRIL [facility] 07/02/24 07/03/24 History [Azelastin-Flutic 137-50Mcg Spr] Calcium(Unknown Dose) 1 dose PO QA 07/02/24 07/03/24 History Ezetimibe [Zetia] 10 mg PO QA 07/02/24 07/03/24 History Losartan [Cozaar] 100 mg PO QA 07/02/24 07/03/24 History Mens Silver (Unknown Dose) 1 dose PO QAM 07/02/24 07/03/24 History Rosuvastatin [Crestor] 10 mg PO QAM 07/02/24 07/03/24 History atenoloL [Tenormin] 25 mg PO QA 07/02/24 07/03/24 History hydroCHLOROthiazide [Hydrodiuril] 25 mg PO QAM 07/02/24 07/03/24 History Allergies Allergy/AdvReac Type Severity Reaction Status Date / Time No Known Allergies Allergy Verified 07/03/24 09:36 Surgical - Exam Vital Signs Temp Pulse Resp BP Pulse Ox 97.0 F L 81 18 131/82 99 07/03/24 09:43 07/03/24 09:43 07/03/24 09:43 07/03/24 09:43 07/03/24 09:43 Physical exam: General: Well-developed, well-nourished HEENT: Normocephalic, sclerae nonicteric Abdomen: Nontender, nondistended Extremities: No edema Neuro: Alert and oriented Assessment and Plan (1) Colon cancer screening Narrative/Plan: Will proceed with colonoscopy at this time. Current Visit: Yes Status: Acute Code(s): Z12.11 - ENCOUNTER FOR SCREENING FOR MALIGNANT NEOPLASM OF COLON SNOMED Code(s): 704619279
--- NOTE | 2024-07-03 11:23 | P.PCN ---
Date of Procedure: 07/03/24 Procedure(s) Performed: PREOPERATIVE DIAGNOSIS: Screening with history of polyps POSTOPERATIVE DIAGNOSIS: Multiple colon polyps, diverticulosis PROCEDURE: Colonoscopy with snare polypectomy ANESTHESIA: MAC SURGEON: Bigg Rowe M.D. SPECIMENS: Polyps ENDOSCOPIC PROCEDURE: The patient was placed on the endoscopy table in the left decubitus position. The Olympus colonoscope was inserted into the anus and passed under direct visualization to the base of the cecum. The appendiceal orifice was visualized. From that point the scope was slowly withdrawn inspecting all surfaces carefully. There were no neoplastic inflammatory or polypoid lesions throughout the cecum. In the ascending colon 2 polyps were seen, 6 polyps in the transverse colon, 1 polyp in the descending colon, 2 polyps in the sigmoid colon. All polyps removed using the snare with cautery technique. All polyps ranged in size from 4 to 8 mm. Mild diverticulosis is also seen. Digital rectal examination was normal. The patient was taken to the recovery room in stable condition per anesthesia guidelines. RECOMMENDATIONS: Await biopsy results. Anticipate repeat colonoscopy 3 years given the numerous polyps seen.
[2024-07-03 11:48] VITALS: BP 108/61; PULSE 77; RESP 18
== END 2024-07-03 12:01 | disposition home or self-care (01) ==
LOC: ORWHC2ENDO 09:25
PROVIDERS: ATTEND Surgery
DX: Z12.11 Encounter for screening for malignant neoplasm of colon (principal); D12.2 Benign neoplasm of ascending colon; D12.3 Benign neoplasm of transverse colon; D12.4 Benign neoplasm of descending colon; D12.5 Benign neoplasm of sigmoid colon; K57.30 Diverticulosis of large intestine without perforation or abscess without bleeding; I10 Essential (primary) hypertension; E78.5 Hyperlipidemia, unspecified; F17.210 Nicotine dependence, cigarettes, uncomplicated; Z79.82 Long term (current) use of aspirin; Z79.899 Other long term (current) drug therapy; Z86.0101 Personal history of adenomatous and serrated colon polyps
CPT/HCPCS: 45385; J2003; J2704; J2371; 88305

== ENCOUNTER 2024-08-18 22:48 | Emergency (ER) | payer MEDICARE ==
[2024-08-18 22:52] VITALS: RESP 18
--- NOTE | 2024-08-18 23:37 | ED ---
General Adult HPI - General Chief complaint: Upper Respiratory Infection Stated complaint: flank pain Time Seen by Provider: 08/18/24 22:59 Source: patient, RN notes reviewed Mode of arrival: ambulatory Limitations: no limitations - History of Present Illness Initial comments: This is a 64-year-old male with history including hypertension, hyperlipidemia, daily EtOH use and smoking presenting for left abdominal/flank pain occurring at 2100 today. Patient states he has had a productive cough for the past 2 weeks, stating he was resting when he began coughing with subsequent severe (10/10) pain in his left abdomen/flank that is radiating to his left ribs/chest. Patient describes pain as "squeezing" that is beginning to resolve since his arrival at the ER. Denies pain with movement or with inspiration/coughing. Denies fever, chills, dizziness, hemoptysis, diaphoresis, N/V/D, materia, dysuria. Onset/Timin -: hour(s) Time: 21:00 Location: chest, abdomen Radiation: proximal Severity scale (1-10): 10 Quality: aching, crushing Consistency: constant, colicky - Related Data Home Medications Medication Instructions Recorded Confirmed Cholecalciferol [Vitamin D3] 1 dose PO QAM 12/21/14 07/03/24 Aspirin EC [Ecotrin Low Dose] 81 mg PO QAM 09/29/16 07/03/24 Azelastine/Fluticasone 1 spray EA NOSTRIL QAM 07/02/24 07/03/24 [Azelastin-Flutic 137-50Mcg Spr] Calcium(Unknown Dose) 1 dose PO QAM 07/02/24 07/03/24 Ezetimibe [Zetia] 10 mg PO QAM 07/02/24 07/03/24 Losartan [Cozaar] 100 mg PO QAM 07/02/24 07/03/24 Mens Silver (Unknown Dose) 1 dose PO QAM 07/02/24 07/03/24 Rosuvastatin [Crestor] 10 mg PO QAM 07/02/24 07/03/24 atenoloL [Tenormin] 25 mg PO QAM 07/02/24 07/03/24 hydroCHLOROthiazide [Hydrodiuril] 25 mg PO QAM 07/02/24 07/03/24 Allergies Allergy/AdvReac Type Severity Reaction Status Date / Time No Known Allergies Allergy Verified 08/18/24 22:52 Review of Systems ROS Statement: Those systems with pertinent positive or pertinent negative responses have been documented in the HPI. ROS Other: All systems not noted in ROS Statement are negative. Past Medical History Past Medical History: Hyperlipidemia, Hypertension Additional Past Medical History / Comment(s): "I have a disease in my hands that make my fingers curl." History of Any Multi-Drug Resistant Organisms: None Reported Past Surgical History: Orthopedic Surgery Additional Past Surgical History / Comment(s): COLONOSCOPY, had bilat hand surgery. Past Anesthesia/Blood Transfusion Reactions: No Reported Reaction Additional Past Anesthesia/Blood Transfusion Reaction / Comment(s): No hx of blood transfusion to date. Past Psychological History: No Psychological Hx Reported Smoking Status: Former smoker Past Alcohol Use History: Daily Past Drug Use History: None Reported - Past Family History Brother(s) Family Medical History: Coronary Artery Disease (CAD) General Exam Limitations: no limitations General appearance: alert, in no apparent distress Head exam: Present: atraumatic, normocephalic, normal inspection Eye exam: Present: normal appearance, PERRL, EOMI. Absent: scleral icterus, conjunctival injection, periorbital swelling ENT exam: Present: normal exam, mucous membranes moist Neck exam: Present: normal inspection. Absent: tenderness, meningismus, lymphadenopathy Respiratory exam: Present: normal lung sounds bilaterally, chest wall tenderness (Positive left lower anterior rib point tenderness without obvious crepitus.). Absent: respiratory distress, wheezes, rales, rhonchi, stridor, accessory muscle use, decreased breath sounds, prolonged expiratory Cardiovascular Exam: Present: regular rate, normal rhythm, normal heart sounds. Absent: systolic murmur, diastolic murmur, rubs, gallop, clicks GI/Abdominal exam: Present: soft, distended, normal bowel sounds. Absent: tenderness, guarding, rebound, rigid Extremities exam: Present: normal inspection, full ROM, normal capillary refill. Absent: tenderness, pedal edema, joint swelling, calf tenderness Back exam: Present: tenderness (Positive left lower back/rib TTP without crepit us. Positive left trapezius tenderness and muscle spasm), muscle spasm. Absent: CVA tenderness (R), CVA tenderness (L), paraspinal tenderness, vertebral tenderness Neurological exam: Present: alert, oriented X3, CN II-XII intact Psychiatric exam: Present: normal affect, normal mood Skin exam: Present: warm, dry, intact, normal color. Absent: rash Course Vital Signs 08/18/24 08/19/24 22:50 02:18 Temperature 98.1 F Pulse Rate 79 66 Respiratory 18 18 Rate Blood Pressure 158/84 130/89 O2 Sat by Pulse 98 96 Oximetry Medical Decision Making - Medical Decision Making Was pt. sent in by a medical professional or institution (, PA, OCCUPATIONAL THERAPY ASSIST, urgent care, hospital, or half-way...) When possible be specific @ -[No] Did you speak to anyone other than the patient for history (EMS, parent, family, police, friend...)? What history was obtained from this source @ -[No] Did you review nursing and triage notes (agree or disagree)? Why? @ -[I reviewed and agree with nursing and triage notes] Were old charts reviewed (outside hosp., previous admission, EMS record, old EKG, old radiological studies, urgent care reports/EKG's, half-way records)? Report findings @ -[No old charts were reviewed] Differential Diagnosis (chest pain, altered mental status, abdominal pain women, abdominal pain men, vaginal bleeding, weakness, fever, dyspnea, syncope, headache, dizziness, GI bleed, back pain, seizure, CVA, palpatations, mental health, musculoskeletal)? @ -Differential Abdominal Pain Men: Appendicitis, cholecystitis, diverticulosis, ischemic bowel, pancreatitis, hepatitis, UTI, gastroenteritis, AAA, incarcerated hernia, bowel obstruction, constipation, inflammatory bowel, hepatitis, peptic ulcer disease, splenic infarction, perforated viscus, testicular torsion, this is not meant to be an all-inclusive list EKG interpreted by me (3pts min.). @ -Sinus rhythm without ST deviation or T wave inversion. Ventricular rate 63 bpm, RONALD 152 ms, QRS 95 ms, QTc 404 ms. X-rays interpreted by me (1pt min.). @ -[None done] CT interpreted by me (1pt min.). @ -[None done] U/S interpreted by me (1pt. min.). @ -[None done] What testing was considered but not performed or refused? (CT, X-rays, U/S, labs)? Why? @ -[None] What meds were considered but not given or refused? Why? @ -Patient declined second liter of IV normal saline. Did you discuss the management of the patient with other professionals (professionals i.e. , PA, OCCUPATIONAL THERAPY ASSIST, lab, RT, psych nurse, manager social media, clinical services manager, teacher, community relations officer, immigration case worker)? Give summary @ -[No] Was smoking cessation discussed for >3mins.? @ -[No] Was critical care preformed (if so, how long)? @ -[No] Were there social determinants of health that impacted care today? How? (Homelessness, low income, unemployed, alcoholism, drug addiction, transporta tion, low edu. Level, literacy, decrease access to med. care, mcc, rehab)? @ -[No] Was there de-escalation of care discussed even if they declined (Discuss DNR or withdrawal of care, Hospice)? DNR status @ -[No] What co-morbidities impacted this encounter? (DM, HTN, Smoking, COPD, CAD, Cancer, CVA, ARF, Chemo, Hep., AIDS, mental health diagnosis, sleep apnea, morbid obesity)? @ -[None] Was patient admitted / discharged? Hospital course, mention meds given and route, prescriptions, significant lab abnormalities, going to OR and other pertinent info. @ -[hospital course] Undiagnosed new problem with uncertain prognosis? @ -[No] Drug Therapy requiring intensive monitoring for toxicity (Heparin, Nitro, Insulin, Cardizem)? @ -[No] Were any procedures done? @ -[No] Diagnosis/symptom? @ -Chest wall pain, MILTON, lactic acidosis Acute, or Chronic, or Acute on Chronic? @ -Acute Uncomplicated (without systemic symptoms) or Complicated (systemic symptoms)? @ -Uncomplicated Side effects of treatment? @ -[No] Exacerbation, Progression, or Severe Exacerbation? @ -[No] Poses a threat to life or bodily function? How? (Chest pain, [place], [place], pneumonia, PE, COPD, DKA, ARF, appy, cholecystitis, CVA, Diverticulitis, Homicidal, Suicidal, threat to staff... and all critical care pts) @ -[No] - Lab Data Result diagrams: 08/19/24 00:04 08/19/24 00:04 Lab Results 08/19/24 08/19/24 08/19/24 Range/Units 00:04 00:04 00:04 WBC 9.66 (4.50-10.00) 10*3/uL RBC 3.81 L (4.40-5.60) 10*6/uL Hgb 13.1 (13.0-17.0) g/dL Hct 37.4 L (39.6-50.0) % MCV 98.2 H (80.0-97.0) fL MCH 34.4 H (27.0-32.0) pg MCHC 35.0 (32.0-37.0) g/dL Plt Count 328 (140-440) 10*3/uL MPV 8.8 L (9.5-12.2) fL Immature Gran % (Auto) 0.4 % Neutrophils % 55.4 % Lymphocytes % 31.1 % Monocytes % 9.8 % Eosinophils % 2.5 % Basophils % 0.8 % Immature Gran # 0.04 (0.00-0.04) 10*3/uL Neutrophils # 5.35 (1.80-7.70) 10*3/uL Lymphocytes # 3.00 (0.90-5.00) 10*3/uL Monocytes # 0.95 (0.20-1.00) 10*3/uL Eosinophils # 0.24 (0.04-0.35) 10*3/uL Basophils # 0.08 (0.00-0.10) 10*3/uL Sodium 142 (137-145) mmol/L Potassium 4.3 (3.5-5.1) mmol/L Chloride 101 (98-107) mmol/L Carbon Dioxide 26 (22-30) mmol/L Anion Gap 15 mmol/L BUN 40 H (9-20) mg/dL Creatinine 1.44 H (0.66-1.25) mg/dL Est GFR (CKD-EPI)AfAm 58 (>60 ml/min/1.73 sqM) Est GFR (CKD-EPI)NonAf 51 (>60 ml/min/1.73 sqM) Glucose 93 (74-99) mg/dL Lactic Ac Sepsis Rflx Plasma Lactic Acid Brett (0.7-2.0) mmol/L Calcium 10.5 H (8.4-10.2) mg/dL Total Bilirubin 0.2 (0.2-1.3) mg/dL AST 27 (17-59) U/L ALT 18 (4-49) U/L Alkaline Phosphatase 87 (38-126) U/L Total Protein 7.3 (6.3-8.2) g/dL Albumin 4.4 (3.5-5.0) g/dL Lipase 127 (23-300) U/L Urine Color Colorless Urine Appearance Clear (Clear) Urine pH 5.0 (5.0-8.0) Ur Specific [place] 1.012 (1.001-1.035) Urine Protein Negative (Negative) Urine Glucose (UA) Negative (Negative) Urine Ketones Negative (Negative) Urine Blood Negative (Negative) Urine Nitrite Negative (Negative) Urine Bilirubin Negative (Negative) Urine Urobilinogen <2.0 (<2.0) mg/dL Ur Leukocyte Esterase Negative (Negative) 08/19/24 08/19/24 Range/Units 00:04 00:49 WBC (4.50-10.00) 10*3/uL RBC (4.40-5.60) 10*6/uL Hgb (13.0-17.0) g/dL Hct (39.6-50.0) % MCV (80.0-97.0) fL MCH (27.0-32.0) pg MCHC (32.0-37.0) g/dL Plt Count (140-440) 10*3/uL MPV (9.5-12.2) fL Immature Gran % (Auto) % Neutrophils % % Lymphocytes % % Monocytes % % Eosinophils % % Basophils % % Immature Gran # (0.00-0.04) 10*3/uL Neutrophils # (1.80-7.70) 10*3/uL Lymphocytes # (0.90-5.00) 10*3/uL Monocytes # (0.20-1.00) 10*3/uL Eosinophils # (0.04-0.35) 10*3/uL Basophils # (0.00-0.10) 10*3/uL Sodium (137-145) mmol/L Potassium (3.5-5.1) mmol/L Chloride (98-107) mmol/L Carbon Dioxide (22-30) mmol/L Anion Gap mmol/L BUN (9-20) mg/dL Creatinine (0.66-1.25) mg/dL Est GFR (CKD-EPI)AfAm (>60 ml/min/1.73 sqM) Est GFR (CKD-EPI)NonAf (>60 ml/min/1.73 sqM) Glucose (74-99) mg/dL Lactic Ac Sepsis Rflx Y Plasma Lactic Acid Brett 3.0 H* (0.7-2.0) mmol/L Calcium (8.4-10.2) mg/dL Total Bilirubin (0.2-1.3) mg/dL AST (17-59) U/L ALT (4-49) U/L Alkaline Phosphatase (38-126) U/L Total Protein (6.3-8.2) g/dL Albumin (3.5-5.0) g/dL Lipase (23-300) U/L Urine Color Urine Appearance (Clear) Urine pH (5.0-8.0) Ur Specific [place] (1.001-1.035) Urine Protein (Negative) Urine Glucose (UA) (Negative) Urine Ketones (Negative) Urine Blood (Negative) Urine Nitrite (Negative) Urine Bilirubin (Negative) Urine Urobilinogen (<2.0) mg/dL Ur Leukocyte Esterase (Negative) Disposition Clinical Impression: Chest wall pain, Lactic acidosis, MILTON (acute kidney injury) Disposition: HOME SELF-CARE Condition: Fair Instructions (If sedation given, give patient instructions): Acute Kidney Injury (DC), Costochondritis (ED) Additional Instructions: Alternate Tylenol/Motrin every 4 hours for pain. Apply cold compress to affected area for 10 minutes up to 4 times daily. Increase oral rehydration. Follow-up with primary care for any ongoing symptoms. Return to ER if experiencing worsening chest pain, back pain, difficulty breathing, abdominal pain. Is patient prescribed a controlled substance at d/c from ED?: No Referrals: Coni Ricci MD [Primary Care Provider] - 1-2 days Time of Disposition: 02:48
--- NOTE | 2024-08-18 23:51 | XR ---
EXAMINATION TYPE: XR chest 2V DATE OF EXAM: 08/18/2024 11:04 PM COMPARISON: Chest radiographs from 03/22/2018, CT low-dose lung 03/21/2024 TECHNIQUE: XR chest 2V Frontal and lateral views of the chest. CLINICAL INDICATION:Male, 64 years old with history of cough; FINDINGS: Lungs/Pleura: There is no evidence of pleural effusion, focal consolidation, or pneumothorax. Pulmonary vascularity: Unremarkable. Heart/mediastinum: Cardiomediastinal silhouette is enlarged and stable. Atherosclerotic calcificatio ns are seen in the aorta. Musculoskeletal: Multiple level degenerative disc disease changes seen throughout the spine. IMPRESSION: No acute cardiopulmonary disease/process. [facility], , 08/18/2024 11:49 PM
[2024-08-19 00:17] LABS: Basophils # (A) 0.08 10*3/uL (0.00-0.10); Basophils % (A) 0.8 %; Eosinophils # (A) 0.24 10*3/uL (0.04-0.35); Eosinophils % (A) 2.5 %; HCT 37.4 % (39.6-50.0); HGB 13.1 g/dL (13.0-17.0); Lymphocytes % (A) 31.1 %; MCH 34.4 pg (27.0-32.0); MCV 98.2 fL (80.0-97.0); Mean Platelet Volume 8.8 fL (9.5-12.2); Monocytes # (A) 0.95 10*3/uL (0.20-1.00); Monocytes % (A) 9.8 %; Neutrophils # (A) 5.35 10*3/uL (1.80-7.70); Neutrophils % (A) 55.4 %; Platelet Count 328 10*3/uL (140-440); RBC 3.81 10*6/uL (4.40-5.60); RDW 12.4 % (11.5-14.5); WBC 9.66 10*3/uL (4.50-10.00)
[2024-08-19 00:37] LABS: Appearance,Urine Clear (Clear); Bilirubin,Urine Negative (Negative); Blood,Urine Negative (Negative); Color,Urine Colorless; Glucose,Urine (UA) Negative (Negative); Ketones,Urine Negative (Negative); Leukocyte Esterase,Urine Negative (Negative); Nitrite,Urine Negative (Negative); Protein,Urine Negative (Negative); Specific Gravity,Urine 1.012 (1.001-1.035); Urobilinogen,Urine <2.0 mg/dL (<2.0)
[2024-08-19 00:38] LABS: ALT 18 U/L (4-49); AST 27 U/L (17-59); African American GFR (CKD) 58 (>60 ml/min/1.73 sqM); Albumin 4.4 g/dL (3.5-5.0); Alkaline Phosphatase 87 U/L (38-126); Anion Gap 15 mmol/L; Blood Urea Nitrogen 40 mg/dL (9-20); Calcium 10.5 mg/dL (8.4-10.2); Carbon Dioxide 26 mmol/L (22-30); Chloride 101 mmol/L (98-107); Glucose 93 mg/dL (74-99); Lipase 127 U/L (23-300); Non-African American GFR(CKD) 51 (>60 ml/min/1.73 sqM); Potassium 4.3 mmol/L (3.5-5.1); Sodium 142 mmol/L (137-145); Total Bilirubin 0.2 mg/dL (0.2-1.3); Total Protein 7.3 g/dL (6.3-8.2)
--- NOTE | 2024-08-19 01:51 | CT ---
EXAM: CT Abdomen and Pelvis Without Intravenous Contrast CLINICAL HISTORY: ITS.REASON CT Reason: MILTON, left anterior rib tenderness TECHNIQUE: Axial computed tomography images of the abdomen and pelvis without intravenous contrast. CTDI is 12 mGy and DLP is 736.5 mGy-cm. This CT exam was performed using one or more of the following dose reduction techniques: automated exposure control, adjustment of the mA and/or kV according to patient size, and/or use of iterative reconstruction technique. COMPARISON: No relevant prior studies available. FINDINGS: Lung bases: Unremarkable. No mass. No consolidation. ABDOMEN: Liver: Unremarkable. Gallbladder and bile ducts: Unremarkable. No calcified stones. No ductal dilation. Pancreas: Unremarkable. No ductal dilation. Spleen: Unremarkable. No splenomegaly. Adrenals: Unremarkable. No mass. Kidneys and ureters: Unremarkable. No nephrolithiasis, hydronephrosis, or obstructive uropathy. Stomach and bowel: Diverticulosis, without acute diverticulitis. No small bowel obstruction. No free air. PELVIS: Appendix: No findings to suggest acute appendicitis. Bladder: Unremarkable. No stones. Reproductive: Unremarkable as visualized. ABDOMEN and PELVIS: Intraperitoneal space: See above. Bones/joints: Degenerative changes of the spine. No acute fracture. No dislocation. Soft tissues: Fat containing bilateral bilateral inguinal hernias containing fat. Vasculature: Atherosclerotic changes of the aorta. No abdominal aortic aneurysm. Lymph nodes: Unremarkable. No enlarged lymph nodes. IMPRESSION: 1. No nephrolithiasis, hydronephrosis, or obstructive uropathy. 2. Diverticulosis, without acute diverticulitis. No small bowel obstruction. No free air.
[2024-08-19] MEDS: SODIUM CHLORIDE 0.9% 1,000 ML IV STA ×2 (02:10→04:06)
[2024-08-19] MEDS: HYDROmorphone 1 MG/ML 1 ML SYRINGE IVP STA ×2 (02:10→03:53)
[2024-08-19] MEDS: ACET/COD 300 MG/30 MG STARTER PACK 6 TAB BTL PO STA (03:51)
[2024-08-19] MEDS: ACETAMINOPHEN TAB 500 MG TAB PO STA (03:52)
[2024-08-19] MEDS: KETOROLAC 15 MG/ML 1 ML VIAL IVP STA (03:53)
[2024-08-19] MEDS: LIDOCAINE 4% PATCH TOPICAL ONE (03:58)
[2024-08-19 04:05] VITALS: BP 149/85; PULSE 75; TEMP 98.7
== END 2024-08-19 04:07 | disposition home or self-care (01) ==
LOC: EC 22:48
DX: R07.89 Other chest pain (principal); E87.20 Acidosis, unspecified; N17.9 Acute kidney failure, unspecified; Z87.891 Personal history of nicotine dependence
CPT/HCPCS: 36415; 93005; 80053; 83605; 83690; 85025; 81003; 71046; 74176; 99285; 96374; 96375; 96376; 96361; J1171; J1885

== ENCOUNTER → 2024-09-14 | Outpatient (CLI) | payer MEDICARE ==
--- NOTE | 2024-09-16 18:14 | US ---
EXAMINATION TYPE: US duplex aorta DATE OF EXAM: 09/14/2024 COMPARISON: NONE CLINICAL INDICATION: Male, 64 years old with history of Z72.0 TOBACCO USE; Tobacco use TECHNIQUE: Multiple sonographic images of the abdominal aorta are obtained with grayscale and color D oppler imaging. FINDINGS: EXAM MEASUREMENTS: Abdominal Aorta: Proximal: 1.5 x 2.3cm Mid: 1.7 x 2.0cm Distal: 1.6 x 1.4cm Bifurcation: Right Iliac: 0.8 x 1.0cm Left Iliac: 1.0 x 0.9cm SCRAP CHARGER NOTES: Limitations due to overlying bowel gas. No evidence of AAA as visualized. Scattere d calcifications seen IMPRESSION: No evidence for aortic aneurysm. No further workup recommended for negative screening aortic aneurysm ultrasound per Society of [employer] Recommendations. [facility], , 09/16/2024 6:11 PM
== END | disposition home or self-care (01) ==
LOC: RADUSWWP 08:12
PROVIDERS: ATTEND Family Medicine
DX: Z13.6 Encounter for screening for cardiovascular disorders (principal); Z72.0 Tobacco use
CPT/HCPCS: 76706